=== PATIENT | female | born 1980 | race Caucasian/White ===

== ENCOUNTER 2017-09-29 08:00 | Outpatient (CLI) | payer BC, OTHER ==
[2017-09-29 19:25] LABS: CHOL/HDL RATIO 4.1 (<4.4); CHOLESTEROL 182 mg/dL; GLUCOSE,FASTING 87 mg/dL (70-100); HDL CHOLESTEROL 44 mg/dL; LDL CHOLESTEROL,CALCULATED 111 mg/dL; LDL/HDL RATIO 2.5 (<4.4); VLDL CHOLESTEROL 27 mg/dL
== END 2017-09-29 08:01 | disposition home or self-care (01) ==
LOC: LAB.WCP 08:00
PROVIDERS: ATTEND Registered Nurse
DX: Z01.419 Encounter for gynecological examination (general) (routine) without abnormal findings (principal)
CPT/HCPCS: 36415; 80061; 82947; 83721; 84443

== ENCOUNTER 2023-06-24 07:36 | Outpatient (CLI) | payer BC ==
[2023-06-24 12:19] LABS: BASOPHILS # (AUTO) 0.1 10^3/uL (0.0-0.1); BASOPHILS % (AUTO) 1.3 %; EOSINOPHILS # (AUTO) 0.4 10^3/uL (0.0-0.7); EOSINOPHILS % (AUTO) 4.7 %; HCT - HEMATOCRIT 42.6 % (37.0-47.0); HGB - HEMOGLOBIN 14.1 g/dL (12.0-16.0); LYMPHOCYTES # (AUTO) 2.2 10^3/uL (1.5-3.5); MEAN CORPUSCULAR HGB CONC 33.1 g/dL (32.0-36.0); MEAN CORPUSCULAR VOLUME 90.6 fL (81.0-99.0); MONOCYTES # (AUTO) 0.7 10^3/uL (0.0-1.0); MONOCYTES % (AUTO) 8.5 %; NEUTROPHILS # (AUTO) 4.5 10^3/uL (1.5-6.6); NEUTROPHILS % (AUTO) 57.2 %; PLT - PLATELET COUNT 350 10^3/uL (130-450); WHITE BLOOD COUNT 7.9 x10^3/uL (4.8-10.8)
[2023-06-24 13:05] LABS: ALBUMIN 4.6 g/dL (3.2-5.5); ALBUMIN/GLOBULIN RATIO 1.7 (1.0-2.2); ALKALINE PHOSPHATASE 61 IU/L (42-121); ALT ALANINE AMINOTRANSFERASE 13 IU/L (10-60); AST ASPARTATE AMINOTRANSFERASE 20 IU/L (10-42); BILIRUBIN,TOTAL 0.5 mg/dL (0.2-1.0); BUN - BLOOD UREA NITROGEN 8 mg/dL (6-20); CALCIUM 9.2 mg/dL (8.5-10.3); CARBON DIOXIDE - CO2 28 mmol/L (21-32); CHLORIDE 104 mmol/L (101-111); CHOL/HDL RATIO 2.8 (<4.4); CHOLESTEROL 192 mg/dL; CREATININE 0.7 mg/dL (0.6-1.3); GFR - MDRD 92 (>89); GLUCOSE 92 mg/dL (74-104); HDL CHOLESTEROL 69 mg/dL; POTASSIUM 3.9 mmol/L (3.5-4.5); SODIUM 138 mmol/L (135-145); TOTAL PROTEIN 7.3 g/dL (6.4-8.9)
[2023-06-24 14:49] LABS: LDL CHOLESTEROL,CALCULATED 108 mg/dL; LDL/HDL RATIO 1.6 (<4.4); TRIGLYCERIDES 75 mg/dL (48-352); VLDL CHOLESTEROL 15 mg/dL
== END 2023-06-24 07:37 | disposition home or self-care (01) ==
LOC: LAB.N 07:36
PROVIDERS: ATTEND Nurse Practitioner
DX: R53.83 Other fatigue (principal); Z13.220 Encounter for screening for lipoid disorders
CPT/HCPCS: 36415; 80053; 80061; 83721; 85025

== ENCOUNTER 2024-02-25 10:04 | Outpatient (CLI) | payer BC ==
--- NOTE | 2024-02-26 11:38 | XRAY Report ---
PROCEDURE: Lumbar Spine 2-3V INDICATIONS: LUMBAGO WITH SCIATICA, RIGHT SIDE TECHNIQUE: 3 views of the lumbar spine were acquired. COMPARISON: None. FINDINGS: Surgical change: None. Bones: 5 [id number] vertebrae are present. There is normal bony alignment. No vertebral body co mpression fractures. No suspicious bony lesions. Soft tissues: Overlying bowel gas pattern is normal. No suspicious soft tissue calcifications. IMPRESSION: No fracture. No acute osseous lesion. If there is continued clinical concern for pathology, then MRI should be considered for further evaluation. Reviewed by: Alyssa Oquendo MD, PhD on 02/26/2024 11:36 AM PDT Approved by: Alyssa Oquendo MD, PhD on 02/26/2024 11:36 AM PDT Station ID: [id number]
== END 2024-02-25 10:05 | disposition home or self-care (01) ==
LOC: LAB.N 10:04 → DI.N 10:05
PROVIDERS: ATTEND Physician Assistant Medical
DX: M54.41 Lumbago with sciatica, right side (principal)